=== PATIENT | female | born 1945 | race Caucasian/White ===

== ENCOUNTER 2018-12-29 11:15 | Day surgery (SDC) | payer MEDICARE ==
--- NOTE | 2018-12-29 08:09 | HP ---
DATE OF SURGERY: 12/29/2018 ANTICIPATED PROCEDURE: Cholecystectomy. HISTORY OF PRESENT ILLNESS: The patient has had multiple episodes of upper abdominal pain. Ultrasound revealing stones. PAST MEDICAL HISTORY: ALLERGIES: NONE. MEDICATIONS: Tenormin. Aldactone. Prilosec. Lisinopril. PAST SURGICAL HISTORY: Joint replacement. SOCIAL HISTORY: Negative. FAMILY HISTORY: Negative. REVIEW OF SYSTEMS: Hypertension. Gastroesophageal reflux disease. PHYSICAL EXAMINATION: VITAL SIGNS: Normal. CHEST: Clear. COR: Regular. ABDOMEN: Satisfactory. IMPRESSION: Symptomatic cholelithiasis. PLAN: Laparoscopic cholecystectomy.
[~2018-12-29 11:15] MED LIST: Lactated Ringers 1,000 ML IV ONE; Sensorcaine 0.25% 10 ML ONE
[2018-12-29] MEDS ORDERED: Lactated Ringers 1,000 ML IV SCH (12:00)
[2018-12-29] MEDS ORDERED: MEFOXIN 2 GM PREMIX** 2 GM/50 ML ML IV SCH (12:00)
[2018-12-29] MEDS ORDERED: Versed 2 MG/2 ML Injection ONE (12:51)
[2018-12-29] MEDS ORDERED: SUBLIMAZE 100 MCG/2 ML ONE ×3 (12:51→16:08)
[2018-12-29] MEDS ORDERED: DIPRIVAN 200 MG/20 ML IV ONE (12:51)
[2018-12-29] MEDS ORDERED: Zemuron 100 MG/10 ML ONE (12:51)
[2018-12-29] MEDS ORDERED: BRIDION 200MG/2ML IV ONE (15:32)
[2018-12-29] MEDS ORDERED: Zofran 4 MG/2 ML VIAL ONE (16:08)
[2018-12-29] MEDS ORDERED: MORPHINE SULFATE 10 MG/ML ONE (16:21)
[2018-12-29 17:58] VITALS: BP 144/89; PULSE 79; O2SAT 95
--- NOTE | 2018-12-30 08:12 | OP ---
SURGERY DATE/TIME: 12/29/2018 1437 PREOPERATIVE DIAGNOSIS: Symptomatic cholelithiasis. POSTOPERATIVE DIAGNOSIS: Symptomatic cholelithiasis. PROCEDURE: Laparoscopic cholecystectomy. SURGEON: Dr. Haddad. ANESTHESIA: General endotracheal tube. COMPLICATIONS: None. CONDITION: Stable. INDICATIONS: Symptomatic cholelithiasis. DESCRIPTION OF PROCEDURE AND FINDINGS: Taken to surgery. General anesthetic, routine prep and drape. Veress needle inserted. Opening pressure of 1, insufflating pressure 14. Four - 5's were used. Good visualization. Cystic duct defined. Cystic artery defined. Both structures triply clipped and transected. Clips noted across and well approximated. Gallbladder rolled out of gallbladder fossa. The gallbladder delivered through upper abdominal port. The field was clean and dry. CO2 exsufflated. Port site closed with 0 Vicryl, 4-0 Vicryl and Steri-Strips. The patient tolerated the procedure satisfactorily.
== END 2018-12-29 17:45 | disposition home or self-care (01) ==
LOC: SDC 11:15
PROVIDERS: ATTEND Surgery
DX: K80.20 Calculus of gallbladder without cholecystitis without obstruction (principal); I10 Essential (primary) hypertension; K21.9 Gastro-esophageal reflux disease without esophagitis; Z79.899 Other long term (current) drug therapy
CPT/HCPCS: 93005; 99100; J0694; J2250; J2270; J2405; J2704; J3010